=== PATIENT | male | born 1990 ===

== ENCOUNTER 2023-09-17 22:26 | Emergency (ER) | payer OTHER, SELFPAY ==
--- OUTSIDE RECORDS SUMMARY | 2023-09-18 00:56 | XMS_ITS | Continuity of Care Document ---
Author Name Unknown Organization [facility] ter Address [address] [place] [id number]- Care Team Providers Care Receiving Worker Name Role Phone Not on Staff, PCP Primary Care Physician Unavail able Encounter [facility] Date(s): 01/28/23 - 01/28/[address] [address]- Encounter Diagnosis Health examination of prisoner(Final) - 01/28/23 Discharge Disposition: A-D/C Home Attending Physician: Ivette Patel MD Admitting Physician: Ivette Patel MD Referring Physician: Not on Staff, Referring MD Allergies, Adverse Reactions, Alerts No Known Allergies Immunizations Given and Recorded Vaccine Date Status Refusal Reason tetanus/diphtheria/pertussis, acel(Tdap) 04/03/18 Given Medications baclofen 10 mg oral tablet 10 mg, 1, tablet, By Mouth, 3 times a day, PRN, Advised to reserve for at night due to drowsiness, # 30 tablet, Refills 0, Tot. Refills 0, Maintenance, Pain , Mild, 11/01/22 18:15:00 EST, Route to Pharmacy Electronically, [facility]/pharmacy #[id number], Partial f... Start Date: 11/01/22 Status: Ordered Problem List Condition Confirmation Course Effective Dates Status Health St atus Informant Obese class II Confirmed Active Vital Signs Most recent to oldest [Reference Range]: 1 2 Oxygen Saturation [94-100 %] 98 % (01/28/23 5:57 AM) 95 % (01/28/23 4:27 AM) Pulse Rate [55-90 bpm] 71 bpm (01/28/23 5:57 AM) 84 bpm (01/28/23 4:27 AM) Blood Pressure [90-138/55-84 mm Hg] 118/ 72mm Hg (01/28/23 5:57 AM) 118/74mm Hg (01/28/23 4:27 AM) Respiratory Rate [16-30 br/min] 16 br/mi n (01/28/23 5:57 AM) 16 br/min (01/28/23 4:27 AM) Temperature [96.8-100.4 DegF] 98.9 DegF (01/28/23 5:57 AM) 98.9 DegF (01/28/23 4:27 AM) Mode of Delivery (Oxygen) Room air (01/28/23 5:57 AM) Room air (01/28/23 4:27 AM) Social History Social History Type Response Smoking Status Unable to Obtain Sex Patient Care team information Care Team Personnel Name: Not on Staff, PCP Position: [facility] Physician (General Medicine) Member Role: PCP Name: Ar Gore Position: [facility] ED TA [facility] Name: Ivette Patel MD Position: [facility] Resident Member Role: Admitting Physician Address: Address: [address] [place] [address] Name: Erich Villareal MD Position: [facility] Resident Member Role: ED Resident Address: Address: [address] [place] [address] Name: Lashawn Peck RN Position: [facility] ED RN W/OE and Tasks Member Role: Patient Care Provider Care Team Related Persons Name: THA KAM Address: home [address] [address] Name: AMILCAR KIRK Address: home [address] [address]
--- OUTSIDE RECORDS SUMMARY | 2023-09-18 00:56 | XMS_ITS | Continuity of Care Document ---
Author Name Unknown Organization [facility] Address [address] [place] [address]- Care Team Providers Care Boiler Or Engine Operator Name Role Phone Not on Staff, PCP Primary Care Physician Unavail able Encounter [facility] Date(s): 11/01/22 - 12/01/22 [facility] [address] [place] [address]- Attending Physician: Leonard Cain Admitting Physician: AdmLeonard servin Referring Physician: AdmtrLeonard Allergies, Adverse Reactions, Alerts No Known Allergies [...] 11/01/22 18:15:00 EST, Route to Pharmacy Electronically, [facility]/pharmacy #[id number], Partial f... Start Date: 11/01/22 Status: Ordered Problem List Condition Confirmation Course Effective Dates Status Health St atus Informant Obese class II Confirmed Active Social History Social History Type Response Smoking Status Unable to Obtain Sex Patient Care team information Care Team Personnel Name: Not on Staff, PCP Position: S Physician (General Medicine) Member Role: PCP Care Team Related Persons Name: THA KAM Address: home [address] [address] Name: AMILCAR KIRK Address: home [address] [place] [id number]
--- OUTSIDE RECORDS SUMMARY | 2023-09-18 00:56 | XMS_ITS | Continuity of Care Document ---
Author Name Unknown Organization [facility] Address [address] [place] [address]- Care Team Providers Care Bookmaker'S Clerk Name Role Phone Not on Staff, PCP Primary Care Physician Unavail able [place] [facility] 09/23/22 - 09/23/[address] [address]- Encounter Diagnosis Acute alcohol intoxication delirium without use disorder(Final) - 09/23/22 Acute alcoholic intoxication(Final) - 09/23/22 Discharge Disposition: A-D/C Home Attending Physician: Lidia Rodriguez DO Admitting Physician: Lidia Rodriguez DO Referring Physician: Not on Staff, Referring MD Allergies, Adverse Reactions, Alerts No Known Allergies Immunizations Given and Recorded Vaccine Date Status Refusal Reason tetanus/diphtheria/pertussis, acel(Tdap) 04/03/18 Given Problem List Condition Confirmation Course Effective Dates Status Health St atus Informant Obese class II Confirmed Active Social History Social History Type Response Smoking Status Unable to Obtain Sex Patient Care team information Care Team Personnel Name: Not on Staff, PCP Position: [facility] Physician (General Medicine) Member Role: PCP Name: *[facility], ED Attending Position: [facility] ED Attendings Patient Name: Mila Bailey RN Position: [facility] ED RN W/OE and Tasks Member Role: Patient Care Provider Name: Lidia Rodriguez DO Position: [facility] ED Medicine MD Member Role: ED Attending Physician Address: Address: [address] [place] [id number]- Care Team Related Persons Name: AMILCAR KIRK Address: home [address] [place] [id number]
== END 2023-09-18 01:21 | disposition left against medical advice (07) ==
PROVIDERS: Emergency Provider Emergency Medicine
DX: M53.3 Sacrococcygeal disorders, not elsewhere classified (principal)